=== PATIENT | male | born 1940 | race Caucasian/White ===

== ENCOUNTER 2019-09-04 16:03 | Emergency (ER) | payer OTHER, MEDICAID ==
[~2019-09-04] VITALS: Ht 160 cm; Wt 61.2 kg
[2019-09-04 16:10] VITALS: BP 143/62
[2019-09-04] MEDS ORDERED: NEOMYCIN/POLYMYXIN/BACITRACIN 0.9 GM/1 PKT TP ONE (17:35)
[2019-09-04 18:32] VITALS: BP 135/89
== END 2019-09-04 18:33 | disposition home or self-care (01) ==
LOC: MED 16:03
DX: T82.838A Hemorrhage due to vascular prosthetic devices, implants and grafts, initial encounter (principal); I13.10 Hypertensive heart and chronic kidney disease without heart failure, with stage 1 through stage 4 chronic kidney disease, or unspecified chronic kidney disease; E11.22 Type 2 diabetes mellitus with diabetic chronic kidney disease; N18.9 Chronic kidney disease, unspecified; X58.XXXA Exposure to other specified factors, initial encounter; Y93.89 Activity, other specified; Y99.8 Other external cause status
CPT/HCPCS: 12001; 99282

== ENCOUNTER 2019-10-30 09:27 | Emergency (ER) | payer OTHER, MEDICAID ==
[~2019-10-30] VITALS: Ht 177.8 cm; Wt 63.5 kg
[2019-10-30 09:32] VITALS: BP 137/66
--- NOTE | 2019-10-30 09:55 | NUR ---
79 YEAR OLD MALE COMPLAINS OF LEFT ARM SHUNT BLEEDING FOR DIALYSIS SINCE 10PM LAST NIGHT. PT STATES NO TRAUMA OCCURED, AND HE JUST FELT IT START BLEEDING SINCE. PT ARM COVERED WITH GAUZE TO STOP BLEEDING. PT AOX4, BREATHING EVEN AND UNLABORED, SKIN WARM AND DRY. BED IN LOWEST POSITION, LOCKED, BED RAIL UPX1. PMH - CKD, DM2 ALLERGIES - NKA
--- NOTE | 2019-10-30 10:58 | NUR ---
APPLIED DRESSING TO LEFT UPPER ARM WITHOUT ANY ISSUES
[2019-10-30 11:03] VITALS: BP 131/62
--- NOTE | 2019-10-30 11:03 | NUR ---
Patient discharged with v/s stable. Written and verbal after care instructions given and explained. Patient verbalized understanding. Ambulatory with steady gait. All questions addressed prior to discharge. Advised to follow up with PMD.
== END 2019-10-30 11:03 | disposition home or self-care (01) ==
LOC: MED 09:27
DX: S41.112A Laceration without foreign body of left upper arm, initial encounter (principal); I10 Essential (primary) hypertension; Z98.890 Other specified postprocedural states; Y83.8 Other surgical procedures as the cause of abnormal reaction of the patient, or of later complication, without mention of misadventure at the time of the procedure; Y93.89 Activity, other specified; Y92.89 Other specified places as the place of occurrence of the external cause; Y99.8 Other external cause status
CPT/HCPCS: 12001; 99282